=== PATIENT | female | born 1935 | race African-American/Black ===

== ENCOUNTER 2017-08-20 09:01 | Observation (INO) | payer OTHER ==
[2017-08-20 10:03] LABS: Absolute Lymphocytes (CBC) 1.6 K/uL (0.7-4.9); Absolute Monocytes 0.8 K/uL (0.1-1.3); Absolute Neutrophil 1.6 K/uL (1.8-8.0); Basophils % 0.3 % (0-1.3); Eosinophils % 0.6 % (0-4.4); Lymphocytes % 40.3 % (15.3-44.8); MCH 22.7 pg (27.0-35.0); MCV 71.2 fL (80-100); MPV 8.2 fL (7.6-11.3); Monocytes % 19.9 % (3.3-12.3); RBC Red Blood Cell Count 3.94 M/uL (3.86-4.86)
[2017-08-20 10:04] LABS: Urine Blood NEGATIVE (NEG); Urine Glucose NEGATIVE (NEG); Urine Protein TRACE (NEG); Urine Specific Gravity <1.005 (1.005-1.030); Urine pH 5.5 (5.0-7.0)
[2017-08-20 10:14] LABS: Potassium 3.5 mEq/L (3.6-5.0)
[2017-08-20] MEDS ORDERED: D50W 25 GM/50 ML SYRINGE IV ONE (10:43)
--- NOTE | 2017-08-20 10:50 | RAD REPORT ---
EXAM DESCRIPTION: RAD - Chest Single View - 08/20/2017 9:59 am CLINICAL HISTORY: Chest pain, hypoglycemia. COMPARISON: None. FINDINGS: Portable technique limits examination quality. The lungs are grossly clear. The heart is mildly prominent size. No displaced fractures.Aortic athero sclerosis. IMPRESSION: No acute intrathoracic process suspected.
[2017-08-20 11:10] LABS: Blood Morphology Comment NOT SEEN (NOT SEEN); Platelet Estimate ADEQ
[2017-08-20] MEDS ORDERED: D5 0.45 NS 1,000 ML IV ONE (11:12)
--- NOTE | 2017-08-20 11:16 | ER ---
Nurse's Notes [facility] Name: Nieves Cordero Age: 82 yrs Sex: Female : 1935 Arrival Date: 08/20/2017 Time: 09:03 Bed 3 Private MD: Diagnosis: Hypoglycemia, unspecified Presentation: 08/20 09:04 Presenting complaint: EMS states: Pt found unresponsive by friend and was hanging off hb the couch. BGL 22. When moved the patient would groan. After administration of 25g of D10 patient became responsive AOx4, BGL improved to 220. Transition of care: patient was not received from another setting of care. Onset of symptoms was August 20, 2017. Risk Assessment: Do you want to hurt yourself or someone else? Patient reports no desire to harm self or others. Care prior to arrival: Medication(s) given: Normal saline infusion, 500 mL, D10 25g IV initiated. 20 GA, in the left antecubital area. 09:04 Method Of Arrival: EMS: [facility] hb 09:04 Acuity: DERRICK 3 hb 13:17 Initial Sepsis Screen: Does the patient meet any 2 criteria? No. Patient's initial hj sepsis screen is negative. Does the patient have a suspected source of infection? No. Patient's initial sepsis screen is negative. Historical: - Allergies: 09:13 Codeine; hb - PMHx: 09:13 Diabetes - NIDDM; Hypertension; hb - Immunization history:: Adult Immunizations up to date. - Social history:: Smoking status: Patient/guardian denies using tobacco. - Ebola Screening: : No symptoms or risks identified at this time. Screenin:31 Abuse screen: Denies threats or abuse. Denies injuries from another. Nutritional hb screening: No deficits noted. Tuberculosis screening: No symptoms or risk factors identified. Fall Risk Total Lockett Fall Scale indicates High Risk Score (45 or more points). Fall prevention measures have been instituted. Side Rails Up X 2 Frequent Obs/Assessments Occuring Family Present and informed to notify staff if the need to leave the bedside As available patient and family educated on Fall Prevention Program and Strategies. Assessment: 09:15 General: Appears in no apparent distress. Behavior is calm, cooperative. Pain: Denies hb pain. Neuro: Level of Consciousness is awake, alert, obeys commands, Oriented to person, place, time, situation. Cardiovascular: Heart tones S1 S2 present Capillary refill < 3 seconds Patient's skin is warm and dry. Respiratory: Airway is patent Trachea midline Respiratory effort is even, unlabored, Respiratory pattern is regular, symmetrical, Breath sounds are clear bilaterally. GI: No signs and/or symptoms were reported involving the gastrointestinal system. : No signs and/or symptoms were reported regarding the genitourinary system. EENT: No signs and/or symptoms were reported regarding the EENT system. Derm: No signs and/or symptoms reported regarding the dermatologic system. Skin is intact, is healthy with good turgor, Skin is pink, warm \T\ dry. Musculoskeletal: No signs and/or symptoms reported regarding the musculoskeletal system. 10:00 Reassessment: Patient appears in no apparent distress at this time. Patient and/or hb family updated on plan of care and expected duration. Pain level reassessed. Patient is alert, oriented x 3, equal unlabored respirations, skin warm/dry/pink. Friend at bedside. 10:10 Reassessment: Friend Jean-Pierre [phone], call when pt ready for dc. hb 10:46 Reassessment: BGL 35, pt lethargic, answering questions appropriately. Dr. Penny hb notified, 1 amp D50 administered as ordered. Vital Signs: 09:12 BP 168 / 70; Pulse 96; Resp 16; Temp 98.2; Pulse Ox 100% on R/A; Pain 0/10; hb 10:12 BP 154 / 58; Pulse 96; Resp 17; Pulse Ox 99% on R/A; hb ED Course: 09:03 Patient arrived in ED. hj 09:11 Brandin Penny MD is Attending Physician. kdr 09:12 Triage completed. hb 09:12 Arm band placed on left wrist. hb 09:15 Patient has correct armband on for positive identification. Placed in gown. Bed in low hb position. Call light in reach. Side rails up X2. 09:15 EKG done, by networking technology instructor. reviewed by Brandin Penny MD. at1 09:15 Maintain EMS IV. Dressing intact. Good blood return noted. Site clean \T\ dry. Gauge \T\ hb site: 20g LEFT AC. 09:31 Liseth Sosa RN is Primary Nurse. hb 09:33 X-ray completed. Portable x-ray completed in exam room. Patient tolerated procedure jb2 well. 09:34 CXR XRAY In Process Unspecified. EDMS 09:50 Urine collected: straight cath specimen, cloudy, Amount Returned: 500mL. 3 09:50 Initial lab(s) drawn, by vt, sent to lab. ks6 11:15 Thierry Hightower MD is Hospitalizing Provider. kdr 13:16 No provider procedures requiring assistance completed. Patient admitted, IV remains in place. intact. Administered Medications: 10:44 Drug: D50W 50 ml Route: IVP; Site: left antecubital; hb 13:17 Follow up: Response: Blood sugar is elevated 11:10 Drug: D5-1/2 NS 1000 ml Route: IV; Rate: 75 ml/hr; Site: left antecubital; hb 13:17 Follow up: IV Status: Infusion continued upon admission Point of Care Testing: Blood Glucose: 09:16 Blood Glucose: 74 mg/dL; hb 10:42 Blood Glucose: 35 mg/dL; hb 11:01 Blood Glucose: 194 mg/dL; hb Ranges: Outcome: 11:15 Decision to Hospitalize by Provider. kdr 13:16 Admitted to Tele accompanied by tech, family with patient, via stretcher, room 414, with chart, Report called to KD Powell 13:16 Condition: stable 13:16 Instructed on the need for admit, Demonstrated understanding of instructions. 13:17 Patient left the ED. Signatures: Dispatcher [employer] EDMS Brandin Penny MD MD kdr Buechter, Jesse jb2 Gayla topete, public speaker EKG Tat1 Jose Cortés RN RN Liseth Ssoa RN RN Cyndee Baeza 3 Liborio Garrison ks6
--- NOTE | 2017-08-20 11:16 | EDPHYS ---
Physician Documentation [facility] Name: Nieves Cordero Age: 82 yrs Sex: Female : 1935 Arrival Date: 08/20/2017 Time: 09:03 Bed 3 Private MD: ED Physician Brandin Penny HPI: 08/20 11:16 This 82 yrs old Black Female presents to ER via EMS with complaints of Low Blood Sugar. kdr 11:16 The patient or guardian reports hypoglycemia, that was potentially precipitated by no kdr particular event, with the patient's symptoms witnessed by family. Onset: The symptoms/episode began/occurred suddenly, this morning. Associated signs and symptoms: Pertinent positives: None. Pertinent negatives: None. Current symptoms: In the emergency department the patient's symptoms have improved, mildly. The patient has experienced similar episodes in the past, a few times. The patient has not recently seen a physician. Historical: - Allergies: :13 Codeine; hb - PMHx: :13 Diabetes - NIDDM; Hypertension; hb - Immunization history:: Adult Immunizations up to date. - Social history:: Smoking status: Patient/guardian denies using tobacco. - Ebola Screening: : No symptoms or risks identified at this time. ROS: 11:16 Constitutional: Negative for fever, chills, and weight loss, Eyes: Negative for injury, kdr pain, redness, and discharge, ENT: Negative for injury, pain, and discharge, Neck: Negative for injury, pain, and swelling, Cardiovascular: Negative for chest pain, palpitations, and edema, Respiratory: Negative for shortness of breath, cough, wheezing, and pleuritic chest pain, Abdomen/GI: Negative for abdominal pain, nausea, vomiting, diarrhea, and constipation, Back: Negative for injury and pain, : Negative for injury, bleeding, discharge, and swelling, MS/Extremity: Negative for injury and deformity, Skin: Negative for injury, rash, and discoloration, Neuro: Negative for headache, weakness, numbness, tingling, and seizure activity. Psych: Negative for depression, anxiety, suicide ideation, homicidal ideation, and hallucinations, Allergy/Immunology: Negative for hives, rash, and allergies, Hematologic/Lymphatic: Negative for swollen nodes, abnormal bleeding, and unusual bruising. 11:16 Endocrine: Positive for cold intolerance, Negative for goiter, polyuria. Exam: 11:16 Constitutional: This is a well developed, well nourished patient who is awake, alert, kdr and in no acute distress. Head/Face: Normocephalic, atraumatic. Eyes: Pupils equal round and reactive to light, extra-ocular motions intact. Lids and lashes normal. Conjunctiva and sclera are non-icteric and not injected. Cornea within normal limits. Periorbital areas with no swelling, redness, or edema. Neck: Trachea midline, no thyromegaly or masses palpated, and no cervical lymphadenopathy. Supple, full range of motion without nuchal rigidity, or vertebral point tenderness. No Meningismus. Chest/axilla: Normal chest wall appearance and motion. Nontender with no deformity. No lesions are appreciated. Cardiovascular: Regular rate and rhythm with a normal S1 and S2. No gallops, murmurs, or rubs. Normal PMI, no JVD. No pulse deficits. Respiratory: Lungs have equal breath sounds bilaterally, clear to auscultation and percussion. No rales, rhonchi or wheezes noted. No increased work of breathing, no retractions or nasal flaring. Abdomen/GI: Soft, non-tender, with normal bowel sounds. No distension or tympany. No guarding or rebound. No evidence of tenderness throughout. Back: No spinal tenderness. No costovertebral tenderness. Full range of motion. Skin: Warm, dry with normal turgor. Normal color with no rashes, no lesions, and no evidence of cellulitis. MS/ Extremity: Pulses equal, no cyanosis. Neurovascular intact. Full, normal range of motion. Neuro: Awake and alert, GCS 15, oriented to person, place, time, and situation. Cranial nerves II-XII grossly intact. Motor strength 5/5 in all extremities. Sensory grossly intact. Cerebellar exam normal. Normal gait. Psych: Awake, alert, with orientation to person, place and time. Behavior, mood, and affect are within normal limits. Vital Signs: 09:12 BP 168 / 70; Pulse 96; Resp 16; Temp 98.2; Pulse Ox 100% on R/A; Pain 0/10; hb 10:12 BP 154 / 58; Pulse 96; Resp 17; Pulse Ox 99% on R/A; hb MDM: 11:15 Patient medically screened. kdr 11:16 Data reviewed: vital signs, nurses notes, lab test result(s), radiologic studies. kdr Counseling: I had a detailed discussion with the patient and/or guardian regarding: the historical points, exam findings, and any diagnostic results supporting the discharge/admit diagnosis, lab results, radiology results, the need for further work-up and treatment in the hospital. ED course: The patient is stable in the ED and improved with the interventions given. 08/20 09:20 Order name: Glucose, Ancillary Testing; Complete Time: 09:23 EDMS 08/20 09:22 Order name: CBC with Diff kdr 08/20 09:22 Order name: Chem 7; Complete Time: 11:00 kdr 08/20 09:22 Order name: Urine Culture kdr 08/20 09:58 Order name: Urine Dipstick--Ancillary (enter results); Complete Time: 11:00 bd 08/20 10:40 Order name: Glucose, Ancillary Testing; Complete Time: 11:00 EDMS 08/20 09:22 Order name: CXR XRAY; Complete Time: 11:00 kdr 08/20 09:22 Order name: Urine Dipstick-Ancillary (obtain specimen); Complete Time: 09:49 kdr 08/20 11:03 Order name: Glucose, Ancillary Testing; Complete Time: 11:05 EDMS 08/20 11:09 Order name: Diet Ada 1800 Jimbo; Complete Time: 11:09 bd 08/20 11:10 Order name: Manual Differential EDMO 08/20 12:36 Order name: Glucose, Ancillary Testing EDMO Administered Medications: 10:44 Drug: D50W 50 ml Route: IVP; Site: left antecubital; hb 13:17 Follow up: Response: Blood sugar is elevated 11:10 Drug: D5-1/2 NS 1000 ml Route: IV; Rate: 75 ml/hr; Site: left antecubital; hb 13:17 Follow up: IV Status: Infusion continued upon admission Point of Care Testing: Blood Glucose: 09:16 Blood Glucose: 74 mg/dL; hb 10:42 Blood Glucose: 35 mg/dL; hb 11:01 Blood Glucose: 194 mg/dL; hb Ranges: Critical Glucose Levels:Adult <50 mg/dl or >400 mg/dl <40 mg/dl or >180 mg/dl Disposition: 06/13/18 11:15 Hospitalization ordered by Thierry Hightower for Observation. Preliminary diagnosis is Hypoglycemia, unspecified. - Bed requested for Telemetry/MedSurg (observation). - Status is Observation. hj - Condition is Fair. - Problem is an acute exacerbation. - Symptoms have improved. UTI on Admission? No Signatures: Dispatcher [employer] EDMS Mounika Garrett Brandin Harris MD MD [facility] Jose Cortés RN RN Liseth Sosa RN RN Corrections: (The following items were deleted from the chart) 12:28 11:15 Hospitalization Ordered by Thierry Hightower MD for Observation. Preliminary diagnosis bd is Hypoglycemia, unspecified. Bed requested for Telemetry/MedSurg (observation). Status is Observation. Condition is Fair. Problem is an acute exacerbation. Symptoms have improved. UTI on Admission? No. kdr 13:17 12:28 08/20/2017 11:15 Hospitalization Ordered by Thierry Hightower MD for Observation. hj Preliminary diagnosis is Hypoglycemia, unspecified. Bed requested for Telemetry/MedSurg (observation). Status is Observation. Condition is Fair. Problem is an acute exacerbation. Symptoms have improved. UTI on Admission? No. bd
[2017-08-20] MEDS ORDERED: ACETAMINOPHEN 500 MG TAB PO PRN (11:32)
[2017-08-20] MEDS ORDERED: ONDANSETRON 4 MG/2 ML VIAL IV PRN (11:32)
[2017-08-20] MEDS ORDERED: GLUCAGON 1 MG/VIAL IM PRN (11:37)
[2017-08-20] MEDS ORDERED: D50W 25 GM/50 ML SYRINGE IV PRN (11:37)
[2017-08-20] MEDS: D5.45NS W/KCL 20MEQ 1,000 ML IV SCH ×3 (12:00→22:00)
--- NOTE | 2017-08-20 14:00 | EKG ---
Test Date: 2017-08-20 Test Time: 09:12:25 Senior Grants Officer: CHERELLE MEASUREMENT RESULTS: Intervals: Rate: 92 MO: 200 QRSD: 78 QT: 372 QTc: 460 [place]: P: 64 MO: 200 QRS: -13 T: 56 INTERPRETIVE STATEMENTS: Normal sinus rhythm Nonspecific ST abnormality Abnormal ECG No previous ECG available for comparison Electronically Signed On 08-20-17 13:59:33 CDT by David Rodas
[2017-08-20] MEDS ORDERED: TEMAZEPAM 15 MG CAP PO PRN (15:46)
--- NOTE | 2017-08-20 16:24 | HP ---
Date of Admission: 08/20/2017 Code Status: Do not resuscitate. No medical power of title attorney and living will. Chief Complaint: Hypoglycemia. Primary Care Physician: Out of town in [place]. History Of Present Illness: The patient is an 82-year-old female with past medical history of hypert ension, diabetes, history of CVA, who comes in with hypoglycemic episode. The patient was visiting h er friend in town. The patient has a pillbox and it is unclear whether she took an extra dose. She is not on any insulin. The patient's symptoms are constant, moderate, progressively worsening. Murray es any fevers, chills, nausea, vomiting. No abdominal pain. No chest pain. The patient was found [facility] have a very low blood sugar as low as in the 20s and was given treatment by EMS. Upon arrival to [facility] ER, her blood sugar was 74 and it dropped down to 35. She did receive an amp of D50, which improv ed her blood sugar to 194 and was started on IV fluids. Her workup revealed a white count of 4.1. U A showed negative nitrite, trace leukocytes. Her chest x-ray was clear. The patient was referred fo admission for hypoglycemia. When the patient was seen in the ER, she was awake, alert, oriented x3 , not in any acute distress. Past Medical History: Diabetes, hypertension, history of CVA with residual right-sided weakness. Past Surgical History: Hysterectomy. Allergies: TO CODEINE, WHICH CAUSES HIVES AND RASH. Medications: List reviewed. Social History: The patient denies any alcohol use, tobacco use, or illicit drug use. The patient l kellee with her great granddaughter and requires assistance with most of her activities of daily living . The patient uses a cane for ambulation. Family History: Positive for diabetes and hypertension. Review of Systems: An 11-point system reviewed, negative except as per HPI. Physical Examination: Vital Signs: Blood pressure 168/70, pulse 96, respirations 16, temperature 98.2, O2 100% on room air . General: Awake, alert, oriented x3, in some mild distress. Elderly female. HEENT: Normocephalic, atraumatic. PERRLA. EOMI. Dry mucous membranes. Oropharynx is clear. Poor dentition. Conjunctiva anicteric. Neck: Supple. No JVD. Trachea midline. CV: S1, S2. Murmur is present. Peripheral pulses are present bilaterally, 2+. Respiratory: Clear to auscultation bilaterally. No wheezing. No stridor. No use of accessory musc les. Gastrointestinal: Abdomen is soft, nontender, nondistended. Positive bowel sounds. No guarding or rigidity. Extremities: No clubbing, cyanosis, or edema. No calf tenderness. Neuro: Cranial nerves 2 through 12 intact grossly. Decreased strength in the right lower extremity. Speech is normal. Sensation intact to light touch. Skin: Normal skin turgor. No rashes. Psych: Mood is okay. Affect is full. Insight and judgment are fair. Laboratory Data: UA; negative nitrite, trace leukocyte, negative glucose, trace protein. Sodium 141 , potassium 3.5, chloride 113, CO2 22, BUN 28, creatinine 0.91, glucose 50. Hemoglobin A1c pending. Calcium 9.1. WBC 4.1, H/H 8.9 and 28, platelets 208, neutrophils 38.9%. Chest x-ray personally rev iewed shows no acute intrathoracic process identified. Assessment And Plan: An 82-year-old female with: 1.Persistent hypoglycemia, unclear etiology. The patient is a diabetic, however, not on insulin. M ay have taken multiple doses of her home medications including metformin and glimepiride. We will ho ld medications for now. We will start on D5 half-normal saline. Monitor blood glucose levels closel y. Use sliding scale insulin as needed. 2.Essential hypertension, stable. We will resume home medications as appropriate. 3.History of cerebrovascular accident with right-sided residual weakness. 4.Gastrointestinal and deep venous thrombosis prophylaxis with PPI and Lovenox. Plan: We will admit the patient to Med/Surge, place as observation, reconcile home medications, kris tor blood glucose levels. The patient states that she does not wish to be resuscitated. We will con tact family member. We will place as DNR. /ASHOK Voice ID: [id number]
[2017-08-20] MEDS: INSULIN -REGULAR HUMAN 50 UNIT/0.5 ML ML SQ SCH ×2 (16:30→20:54)
[2017-08-20] MEDS ORDERED: INSULIN -REGULAR HUMAN 50 UNIT/0.5 ML ML SQ SCH (16:30)
[2017-08-20] MEDS ORDERED: TEMAZEPAM 30 MG PO SCH (21:00)
[2017-08-20] MEDS ORDERED: METOPROLOL TAR 25 MG TAB PO SCH (21:00)
[2017-08-21] MEDS: D5.45NS W/KCL 20MEQ 1,000 ML IV SCH ×2 (01:00→08:00)
[2017-08-21] MEDS ORDERED: HYDRALAZINE HCL 20 MG/ML VIAL IV PRN (01:37)
[2017-08-21] MEDS ORDERED: HYDRALAZINE HCL 20 MG/ML VIAL ONE (02:03)
[2017-08-21 04:23] LABS: Absolute Lymphocytes (CBC) 2.5 K/uL (0.7-4.9); Absolute Monocytes 0.7 K/uL (0.1-1.3); Absolute Neutrophil 1.3 K/uL (1.8-8.0); Basophils % 0.4 % (0-1.3); Eosinophils % 1.5 % (0-4.4); Hematocrit 25.8 % (36.0-45.0); Lymphocytes % 54.8 % (15.3-44.8); MCH 22.8 pg (27.0-35.0); MCV 71.3 fL (80-100); MPV 8.1 fL (7.6-11.3); RBC Red Blood Cell Count 3.62 M/uL (3.86-4.86)
[2017-08-21 04:31] LABS: ALT/SGPT 13 IU/L (10-60); AST/SGOT 20 IU/L (10-42); Albumin 2.7 g/dL (3.2-5.5); Alkaline Phosphatase 67 IU/L (42-121); BUN Blood Urea Nitrogen 15 mg/dL (6-20); Bicarbonate 23 mEq/L (21-31); Bilirubin Total 0.4 mg/dL (0.3-1.2); Glucose Level 106 mg/dL (65-120); Potassium 4.3 mEq/L (3.6-5.0); Protein, Total 6.5 g/dL (6.0-8.3); Sodium Level 138 mEq/L (135-145)
[2017-08-21 04:34] LABS: Monocytes % 15.4 % (3.3-12.3)
[2017-08-21] MEDS: INSULIN -REGULAR HUMAN 50 UNIT/0.5 ML ML SQ SCH (07:30)
--- NOTE | 2017-08-21 08:26 | EKG ---
Test Date: 2017-08-20 Test Time: 20:42:55 Test Manager: RT MEASUREMENT RESULTS: Intervals: Rate: 76 MD: QRSD: 70 QT: 368 QTc: 414 [place]: P: 74 MD: QRS: -13 T: 25 INTERPRETIVE STATEMENTS: Sinus tachycardia with 2nd degree AV block (Mobitz I) Abnormal ECG Compared to ECG 08/20/2017 09:12:25 Sinus rhythm no longer present ST (T wave) deviation no longer present Electronically Signed On 08-21-17 08:24:40 CDT by Brad Sneed
[2017-08-21] MEDS ORDERED: POTASSIUM CL SA 10 MEQ TAB PO SCH (09:00)
[2017-08-21] MEDS ORDERED: HOME MED 1 EA UNK (Ramipril [Altace] 10 MG) PO SCH (09:00)
[2017-08-21] MEDS ORDERED: RAMIPRIL 5 MG CAP PO SCH (09:00)
[2017-08-21] MEDS ORDERED: ENOXAPARIN 40 MG/0.4 ML SQ SCH (09:00)
[2017-08-21] MEDS ORDERED: FUROSEMIDE 40 MG TABLET PO SCH (09:00)
[2017-08-21] MEDS ORDERED: AMLODIPINE 10 MG TAB PO SCH (09:00)
[2017-08-21 11:26] LABS: A1c Component 0.33 mg/dL; Hemoglobin A1c 5.5 % (4-6.0)
--- NOTE | 2017-08-22 05:15 | DS ---
Date of Discharge: 08/21/2017 Admitting Diagnoses: 1.Persistent hypoglycemia. 2.Essential hypertension. 3.History of cerebrovascular accident with right-sided residual weakness. Discharge Diagnoses: 1.Persistent hypoglycemia, likely related to overdose of medications, unintentional. 2.Essential hypertension. 3.History of cerebrovascular accident with right-sided weakness. Hospital Course: The patient is an 82-year-old female who came in with hypoglycemic episode. Sugar was as low as 20s, improved with amp of D50. She was placed on D5 half NS and her sugar levels impro abran. The patient brought in her pill box, which showed medicines to be completely disorganized. Lik alok, the patient took multiple doses of hypoglycemics the morning of the episode. The patient was ea ting and drinking well. Her glucose levels remained stable. The patient has most of her physicians in [place], goes to [facility]. The patient however came in, was visiting a friend in to , therefore was in the area. The patient was able to ambulate well with a walker. She usually use s a cane at home. She does have some right-sided weakness. Home health has already been set up for her as documented by the nurse, Sherry. The patient will need medication management. I contacted her great-granddaughter, whom she lives with, Aisha, however, she did not return my call. The brandon reyes was then cleared for discharge and was sent home in a stable condition. Activity: Fall precautions. Medications: As per medication reconciliation list. Followup: Follow up with primary care physician in 2 days. Return to ER for worsening condition. Diet: Diabetic. Discharge Physical Examination: General: Awake, alert, oriented, no acute distress. CV: S1, S2. No murmurs. Respiratory: Moving air well bilaterally. Abdomen: Soft, nontender, nondistended. Positive bowel sounds. Extremities: No clubbing, cyanosis, or edema. Neurologic: Right-sided weakness. SA/MODL Voice ID: [id number] Report ID: [id number]
== END 2017-08-21 11:36 | disposition home or self-care (01) ==
LOC: ER 09:01 → ERHOLD 11:25 → 4TH 13:07
PROVIDERS: ADMIT Family Medicine; ATTEND Family Medicine
DX: E11.649 Type 2 diabetes mellitus with hypoglycemia without coma (principal); I10 Essential (primary) hypertension; I69.351 Hemiplegia and hemiparesis following cerebral infarction affecting right dominant side
CPT/HCPCS: 36415 ×2; 71045; 80048; 80053; 81003; 82962 ×10; 83036; 85025 ×2; 87077; 87086; 87088; 87186; 93005 ×2; 94760 ×3; 96361; 96374; 97116; 97163; 97530; 99285; G0378 ×2; J0360 ×3; J1650